=== PATIENT | male | born 1990 | race Caucasian/White ===

== ENCOUNTER 2016-07-28 01:10 | Emergency (ER) | payer SELFPAY ==
[~2016-07-28] VITALS: Ht 160 cm; Wt 66.5 kg
[2016-07-28 01:13] VITALS: Ht 160 cm; Wt 66.5 kg
[2016-07-28] MEDS ORDERED: QUET25TA26 PO (02:13)
--- NOTE | 2016-07-28 02:16 | ERD ---
ER Documentation Chief Complaint Date/Time DATE: 07/28/16 TIME: 02:10 Chief Complaint took 1 extra dose of seroquel today, he is supposed to take 1 tab /day HPI 26-year-old male presents here in emergency department for complaints of drowsiness after taking 2 tablets of Seroquel today. Patient misread instructions of the bottle, he is supposed to be taking only 1 tablet a day and will increase to 2 tablets in 2 weeks. Patient actually took 2 tablets today. Patient feels drowsy. Patient denies any other symptoms. Patient denies homicidal or suicidal ideations. Patient denies any shortness of breath. Patient denies any other symptoms. Patient takes medication for depression and anxiety. ROS All systems reviewed and are negative except as per history of present illness. Medications Home Meds Reported Medications Quetiapine Fumarate* (Seroquel*) Unknown Strength Tablet, PO TID, #90 TAB 07/28/16 Allergies Allergies: Coded Allergies: No Known Allergy (Unverified , 07/28/16) PMhx/Soc History of Surgery: No Anesthesia Reaction: No Hx Neurological Disorder: No Hx Respiratory Disorders: No Hx Cardiac Disorders: No Hx Psychiatric Problems: Yes (anxiety, depression) Hx Miscellaneous Medical Probl: No Hx Alcohol Use: No (holidays only) Hx Substance Use: No Hx Tobacco Use: No Smoking Status: Former smoker FmHx Family History: No coronary disease, No diabetes, No other Physical Exam Vitals Vital Signs Date Time Temp Pulse Resp B/P Pulse Ox O2 Delivery O2 Flow Rate FiO2 07/28/16 01:13 97.4 71 20 103/64 98 Physical Exam GENERAL: The patient is well developed and appropriate for usual state of health, in no apparent distress. CHEST: Clear to auscultation bilaterally. There are no rales, wheezes or rhonchi. HEART: Regular rate and rhythm. No murmurs, clicks, rubs or gallops. No S3 or S4. ABDOMEN: Soft, nontender and nondistended. Good bowel sounds. No rebound or guarding. No gross peritonitis. No gross organomegaly or masses. No Caceres sign or McBurney point tenderness. BACK: No midline or flank tenderness. EXTREMITIES: Equal pulses bilaterally. There is no peripheral clubbing, cyanosis or edema. No focal swelling or erythema. Full range of motion. Grossly neurovascularly intact. NEURO: Alert and oriented. Cranial nerves 2-12 intact. Motor strength in all 4 extremities with 5/5 strength. Sensation grossly intact. Normal speech and gait. SKIN: There is no apparent rash or petechia. The skin is warm and dry. HEMATOLOGIC AND LYMPHATIC: There is no evidence of excessive bruising or lymphedema. No gross cervical, axillary, or inguinal lymphadenopathy. Results 24 hrs Poison control was contacted, recommended further observation and to ensure the patient drowsiness has improved prior to discharging the patient. Patient is stable at this time. No symptoms of any respiratory distress. Procedures/MDM Medical decision making: Patient took an extra dose of Seroquel making him more drowsy than normal. No symptoms of any respiratory distress. Poison control was contacted, no expected adverse reaction with taking one extra pill. No symptoms on the centers is a radiation. At this time, patient is drowsy but will allow patient to sleep off here in emergency department until he feels better. Patient was advised to read instructions of medications well prior to taking them. Patient was advised to return to emergency department for any worsening symptoms. Departure Diagnosis: Primary Impression: Medication reaction Encounter type: initial encounter Qualified Code: T88.7XXA - Medication reaction, initial encounter Condition: Stable Patient Instructions: Quetiapine Fumarate Oral tablet JESUS GAY NP July 28, 2016 02:16
[2016-07-28 04:47] VITALS: BP 107/65; PULSE 72; RESP 12; TEMP 97.7
== END 2016-07-28 04:51 | disposition home or self-care (01) ==
LOC: FTE 01:10
DX: T43.591A Poisoning by other antipsychotics and neuroleptics, accidental (unintentional), initial encounter (principal); Z87.891 Personal history of nicotine dependence
CPT/HCPCS: 99282

== ENCOUNTER 2017-07-22 20:29 | Emergency (ER) | END 2017-07-22 23:19 | disposition home or self-care (01) ==